=== PATIENT | male | born 1970 | race Caucasian/White ===

== ENCOUNTER 2025-02-24 11:04 | Emergency (ER) | payer MEDICAID ==
[~2025-02-24] VITALS: Ht 188 cm; Wt 96.0 kg
[2025-02-24 11:14] VITALS: O2SAT 99
[2025-02-24] MEDS: TETANUS, DIPHTHERIA, PERTUSSIS VAC/PF 0.5ML (>10YR OLD) IM ONE (12:11)
[2025-02-24] MEDS ORDERED: IBUP-2029 MT (12:59)
[2025-02-24 13:06] VITALS: BP 150/94; PULSE 59; RESP 17; TEMP 36.7; O2SAT 99
== END 2025-02-24 13:06 | disposition home or self-care (01) ==
LOC: ER 11:04
DX: S81.812A Laceration without foreign body, left lower leg, initial encounter (principal); I10 Essential (primary) hypertension; X58.XXXA Exposure to other specified factors, initial encounter; Y93.89 Activity, other specified; Y92.89 Other specified places as the place of occurrence of the external cause; Y99.8 Other external cause status
CPT/HCPCS: 90715; 12001; 90471; 99283; Z7610

== ENCOUNTER 2025-03-02 17:53 | Emergency (ER) | payer MEDICAID ==
[~2025-03-02] VITALS: Ht 188 cm; Wt 97.0 kg
[~2025-03-02 17:53] MED LIST: IBUP-2029 MT
[2025-03-02 17:56] VITALS: O2SAT 97
[2025-03-02 17:59] VITALS: BP 134/95; PULSE 86; RESP 18; TEMP 36.8; O2SAT 98
[2025-03-02] MEDS: LIDOCAINE HCL/EPINEPHRINE 1%-EPI 1:100,000 20ML VIAL INFIL ONE (19:30)
[2025-03-02] MEDS ORDERED: SULF1TAB48 MT (20:37)
== END 2025-03-02 21:10 | disposition home or self-care (01) ==
LOC: ER 17:53
DX: S71.112D Laceration without foreign body, left thigh, subsequent encounter (principal); Z79.899 Other long term (current) drug therapy; X58.XXXD Exposure to other specified factors, subsequent encounter
CPT/HCPCS: 99283; J2004; Z7610 ×5; A4606